=== PATIENT | female | born 1975 | race Caucasian/White ===

== ENCOUNTER → 2016-10-17 | Outpatient (CLI) | payer MEDICAID ==
[~2016-10-17] MED LIST: DIPH25CA61 PO; LORA-702 PO; METH250T PO
== END | disposition home or self-care (01) ==
LOC: CVU 14:49
PROVIDERS: ATTEND Registered Nurse
DX: G43.711 Chronic migraine without aura, intractable, with status migrainosus (principal); I07.1 Rheumatic tricuspid insufficiency; I34.0 Nonrheumatic mitral (valve) insufficiency; I10 Essential (primary) hypertension
CPT/HCPCS: 93306; 93880

== ENCOUNTER → 2018-09-15 | Outpatient (CLI) | payer MEDICAID ==
[~2018-09-15] MED LIST changes: -METH250T PO; +METH250T3 PO
== END | disposition home or self-care (01) ==
LOC: CFH 14:27
PROVIDERS: ATTEND Nurse Practitioner Family
DX: R92.2 Inconclusive mammogram (principal); N63.20 Unspecified lump in the left breast, unspecified quadrant; N64.4 Mastodynia
CPT/HCPCS: 76641; 77066; G0279